=== PATIENT | female | born 1940 | race Caucasian/White ===

== ENCOUNTER 2022-01-28 15:10 | Observation (INO) | payer MEDICARE ==
[2022-01-28] MEDS ORDERED: Sodium Chloride 0.9% 1,000 ML IV ONE (15:16)
[2022-01-28] MEDS ORDERED: Sodium Chloride 0.9% 2.5 ML Syringe FLUSH PRN (15:16)
[2022-01-28] MEDS ORDERED: Sodium Chloride 0.9% 10 ML Syringe FLUSH PRN (15:16)
[2022-01-28] MEDS ORDERED: Diltiazem 50 MG/10 ML SDV IVPUSH ONE (15:24)
[2022-01-28] MEDS ORDERED: Diltiazem 25 MG/5 ML SDV IVPUSH ONE ×2 (15:35→18:43)
[2022-01-28 15:50] LABS: CARBON DIOXIDE,CO2 32.9 mmol/L (21.0-32.0); POTASSIUM,K 4.1 mmol/L (3.5-5.1)
[2022-01-28 16:00] LABS: CORONAVIRUS COVID-19 NAA NEGATIVE (NEGATIVE)
[2022-01-28] MEDS ORDERED: Diltiazem IR 60 MG Tab PO ONE (16:04)
[2022-01-28] MEDS ORDERED: Iopamidol 755 MG/ML 500 ML Multipack Bottle IVPUSH STA (16:10)
[2022-01-28] MEDS ORDERED: methylPREDNISolone Sodium Succinate 125 MG/2 ML SDV IVPUSH ONE (16:22)
[2022-01-28 17:08] LABS: INFLUENZA A NAA NEGATIVE (NEGATIVE); INFLUENZA B NAA NEGATIVE (NEGATIVE)
[2022-01-28] MEDS ORDERED: Albuterol 8 GM Inhaler INH PRN (20:11)
[2022-01-28] MEDS: Albuterol/Ipratropium 3.0-0.5 MG/3 ML Neb Soln NEB PRN ×2 (20:45→23:57)
[2022-01-28] MEDS: Diltiazem 180 MG Cap.CD PO SCH (20:45)
[2022-01-28] MEDS: Apixaban 5 MG Tab PO SCH (20:45)
[2022-01-28] MEDS: Acetaminophen 325 MG Tab PO PRN (20:51)
[2022-01-29 06:25] LABS: CARBON DIOXIDE,CO2 32.3 mmol/L (21.0-32.0); POTASSIUM,K 4.4 mmol/L (3.5-5.1)
[2022-01-29] MEDS ORDERED: Levothyroxine 50 MCG Tab PO SCH (08:00)
[2022-01-29] MEDS: Acetaminophen 325 MG Tab PO PRN (08:39)
[2022-01-29] MEDS ORDERED: methylPREDNISolone Sodium Succinate 40 MG/1 ML SDV IVPUSH SCH ×2 (09:00)
[2022-01-29] MEDS ORDERED: Pantoprazole 40 MG Tab.CR PO SCH (09:00)
[2022-01-29] MEDS: Apixaban 5 MG Tab PO SCH (10:01)
[2022-01-29] MEDS: Diltiazem 180 MG Cap.CD PO SCH (10:02)
[2022-01-29] MEDS: Albuterol/Ipratropium 3.0-0.5 MG/3 ML Neb Soln NEB PRN (10:06)
[2022-01-29] MEDS ORDERED: Rosuvastatin 10 MG Tab PO SCH (21:00)
[2022-01-29] MEDS ORDERED: Montelukast 10 MG Tab PO SCH (21:00)
== END 2022-01-29 13:30 | disposition home or self-care (01) ==
LOC: MW.ED 15:10 → MW.MS 18:47
PROVIDERS: ADMIT Student in an Organized Health Care Education/Training Program; ATTEND Student in an Organized Health Care Education/Training Program
DX: I48.91 Unspecified atrial fibrillation (principal); M81.0 Age-related osteoporosis without current pathological fracture; E03.9 Hypothyroidism, unspecified; J44.1 Chronic obstructive pulmonary disease with (acute) exacerbation; R77.8 Other specified abnormalities of plasma proteins; I10 Essential (primary) hypertension; G89.29 Other chronic pain; M54.50 Low back pain, unspecified; K21.9 Gastro-esophageal reflux disease without esophagitis; Z20.822 Contact with and (suspected) exposure to COVID-19; Z99.81 Dependence on supplemental oxygen; Z88.5 Allergy status to narcotic agent; Z79.899 Other long term (current) drug therapy; Z87.891 Personal history of nicotine dependence; Z79.01 Long term (current) use of anticoagulants
CPT/HCPCS: 0240U; 36415; 71275; 80048; 80053; 81001; 83735; 84100; 84484; 85025; 85379; 93005; 94640; 96361; 96374; 96375; 96376; 99285; A9270; G0378; J2920; J2930; J3490; J7030; Q9967; J7620-GY

== ENCOUNTER 2025-03-16 23:51 | Emergency (ER) | payer MEDICARE ==
[2025-03-17] MEDS: Diphtheria,Pertussis(Acell),Tetanus Vaccine 0.5 ML Syringe IM ONE (00:27)
== END 2025-03-17 01:20 | disposition home or self-care (01) ==
LOC: MW.ED 23:51
DX: S51.811A Laceration without foreign body of right forearm, initial encounter (principal); I48.91 Unspecified atrial fibrillation; E03.9 Hypothyroidism, unspecified; J44.9 Chronic obstructive pulmonary disease, unspecified; Z88.5 Allergy status to narcotic agent; Z79.01 Long term (current) use of anticoagulants; Z79.890 Hormone replacement therapy; Z79.899 Other long term (current) drug therapy; Z75.3 Unavailability and inaccessibility of health-care facilities; W01.198A Fall on same level from slipping, tripping and stumbling with subsequent striking against other object, initial encounter; Z23 Encounter for immunization
CPT/HCPCS: 73090-26-RT; 73090-RT; 90471; 90715; 99283; 99283-25

== ENCOUNTER 2025-03-18 10:24 | Emergency (ER) | payer MEDICARE | END 2025-03-18 12:03 | disposition home or self-care (01) | LOC: MW.ED 10:24 | DX: S41.111A Laceration without foreign body of right upper arm, initial encounter (principal); I48.91 Unspecified atrial fibrillation; E03.9 Hypothyroidism, unspecified; Z88.5 Allergy status to narcotic agent; Z79.899 Other long term (current) drug therapy; Z79.890 Hormone replacement therapy; Z79.01 Long term (current) use of anticoagulants; Z87.891 Personal history of nicotine dependence; W18.39XA Other fall on same level, initial encounter; Y93.89 Activity, other specified | CPT/HCPCS: 99282; A9270 ==